=== PATIENT | female | born 1960 | race Caucasian/White ===

== ENCOUNTER 2016-08-25 14:38 | Outpatient (CLI) | payer OTHER ==
[~2016-08-25 14:38] MED LIST: ACYCLOVIR200 MG PO; ALBUTEROL HFA60 DOSE IN; AMITIZA8 MCG PO; ASPIRIN ADULT L81 M1 PO; CELLCEPT500 MG PO; DIAZEPAM10 MG PO; DILAUDID8 MG PO; FLUOXETINE HCL20 MG PO; METHOCARBAMOL500 MG PO; MIRTAZAPINE15 MG PO; NITROSTAT0.4 MG SL; OXYCONTIN30 MG PO; POTASSIUM CHLO10 ME2 PO; PRAVASTATIN SOD20 MG PO; PROAIR HFA IN; RANITIDINE HCL150 MG PO; RESTASIS0.05 % OP; SEREVENT DISKU50 MCG IN; TIZANIDINE HCL4 MG PO; ZOFRAN ODT4 MG PO
--- NOTE | 2016-08-25 16:51 | DIAGNOSTIC IMAGING REPORT ---
PROCEDURE: MR CERVICAL SPINE W/O CONT INDICATION: CERVICALGIA TECHNIQUE: Noncontrast T1, T2, and STIR sagittal images. T2 and gradient axial images. COMPARISON: None. FINDINGS: Normal alignment without fracture or suspicious osseous lesions. Moderate spur formation with disc space narrowing most prominent at C5-6 and C6- 7. Normal craniocervical junction. Mild spinal stenosis at C5-6 and C6-7. Paraspinal soft tissues are normal. C2-3: Mild facet arthropathy. C3-4: Moderate left foraminal disc protrusion/spur complex and left facet arthropathy with moderate left foraminal stenosis. No spinal stenosis. C4-5: Moderate left foraminal disc protrusion/spur complex and left facet arthropathy with moderate left foraminal stenosis. No spinal stenosis. C5-6: Mild to moderate broad-based disc protrusion/spur complex, most prominent left posteriorly and facet arthropathy. There is mild right and moderate left foraminal stenosis. There is also mild spinal stenosis. C6-7: Large central disc protrusion/spur complex with mild right and moderate left foraminal stenosis. There is also mild spinal stenosis. C7-T1: Normal appearance. IMPRESSION: 1. Moderate degenerative changes with multilevel disc bulging 2. Moderate left C3-4 and left C5-6 foraminal stenosis 3. C5-6 disc protrusion with mild right and moderate left foraminal stenosis and mild spinal stenosis 4. C6-7 large disc protrusion with mild right and moderate left foraminal stenosis and mild spinal stenosis
--- NOTE | 2016-08-25 17:00 | DIAGNOSTIC IMAGING REPORT ---
PROCEDURE: MR LUMBAR SPINE W/O CONTRAST INDICATION: CERVICALGIA TECHNIQUE: Noncontrast T1, T2, and STIR sagittal images. T1 and T2 axial images. COMPARISON: Lumbar spine x-ray 12/31/2008 and lumbar spine MRI 12/31/2008. FINDINGS: Normal alignment without fracture or suspicious osseous lesion. Mild levoscoliosis. Small benign bony hemangioma is T12 and L2. Normal conus. Paraspinal soft tissues are normal. L1-2: Normal appearance. L2-3: Normal appearance. L3-4: Mild facet arthropathy. L4-5: Mild facet arthropathy. L5-S1: Minor disc bulge and right posterior radial tear, unchanged. Mild facet arthropathy. No foraminal or spinal stenosis. IMPRESSION: 1. No significant change from lumbar spine MRI 12/31/2008. 2. Mild levoscoliosis and lower facet arthropathy.
== END 2016-08-25 23:00 ==
LOC: MRI SRH 14:38
DX: M50.321 Other cervical disc degeneration at C4-C5 level (principal); M50.322 Other cervical disc degeneration at C5-C6 level; M48.02 Spinal stenosis, cervical region; M50.323 Other cervical disc degeneration at C6-C7 level; M47.816 Spondylosis without myelopathy or radiculopathy, lumbar region